=== PATIENT | female | born 1990 | race Caucasian/White ===

== ENCOUNTER 2017-07-27 23:11 | Emergency (ER) | payer OTHER ==
[~2017-07-27] VITALS: Ht 157.5 cm; Wt 48.4 kg
[~2017-07-27 23:11] MED LIST: DEXT30TA7 PO; SPR28 PO; TYLOTC500 PO
[2017-07-27 23:18] VITALS: TEMP 36.9; Ht 157.5 cm; Wt 48.4 kg
[2017-07-27] MEDS ORDERED: ALBUT/IPRATROP 3MG/0.5MG NEB 3 ML VIAL INH STA (23:27)
[2017-07-27 23:42] VITALS: O2SAT 99
[2017-07-27] MEDS ORDERED: POLY335019 PO (23:54)
[2017-07-28] MEDS ORDERED: ALBUTEROL HFA 8 GM INHALER INH STA (00:27)
[2017-07-28 01:08] VITALS: BP 130/82; PULSE 100; O2SAT 100
--- NOTE | 2017-07-28 03:12 | EMERGENCY ROOM VISIT NOTE ---
History First contact with patient: 23:22 Chief Complaint: EAR PAIN Stated Complaint: RT EAR PRESSURE AND THROAT PAIN, RUNNY NOSE History of Present Illness The patient is a 27 year old female who presents to the Emergency Room with complaints of cough, congestion, runny nose and sore throat for the past few days. No temp was taken. No flu shot. No recent travel. Patient denies chest pain, dyspnea, headache, neck stiffness, abdominal pain, vomiting, diarrhea. She is tolerate by mouth fluids and food. Review of Systems See HPI for pertinent positives & negatives. A total of 10 systems reviewed and were otherwise negative. Past Medical/Surgical History Medical Problems: (1) Kidney stones Family History Cancer Hypertension Social History Smoking Status: Never Smoker Smokeless Tobacco Use: No Drug Use: none Marital Status: Housing Status: lives with family Occupation Status: employed Current/Historical Medications Scheduled Ethinyl Estrad/Norgestimate (Sprintec 28), 1 TAB PO DAILY Polyethylene Glycol 3350 (Miralax), 17 GM PO DAILY Physical Exam Vital Signs Date Time Temp Pulse Resp B/P (MAP) Pulse Ox O2 Delivery O2 Flow Rate FiO2 07/28/17 01:08 100 18 130/82 100 07/27/17 23:42 99 Room Air 07/27/17 23:18 36.9 110 19 134/78 100 Room Air Physical Exam VITALS: Vitals are noted on the nurse's note and reviewed by myself. Vital signs mildly tachycardic GENERAL: Pleasant female, in no acute distress, nondiaphoretic, well-developed well-nourished. SKIN: The skin was without rashes, erythema, edema, or bruising. There is no tenting of the skin. Capillary reflex less than 2 seconds. HEAD: Normocephalic atraumatic. EARS: External auditory canals clear, tympanic membranes pearly paulson without erythema or effusion bilaterally. EYES: Pupils equal round and reactive to light and accommodation. Conjunctivae without injection, sclerae without icterus. Extraocular movements intact. NOSE: Patent, turbinates without inflammation or discharge. No sinus tenderness. MOUTH: Mucous membranes moist. Pharynx without erythema or exudate. Uvula midline. Airway patent. Tongue does not deviate. NECK: Supple without nuchal rigidity. No lymphadenopathy. No thyromegaly. Cervical spine is nontender. No JVD.No meningeal signs HEART: Tachycardic rate and rhythm without murmurs gallops or rubs. LUNGS: Mild diffuse end expiratory wheezes, without rales or rhonchi. No dullness to percussion. No retractions or accessory muscle use. ABDOMEN: Positive bowel sounds x 4. Normal tympanic percussion. Soft, nontender, without masses or organomegaly. Spann sign negative. No guarding or rebound tenderness. MUSCULOSKELETAL: No muscle atrophy, erythema, or edema noted. NEURO: Patient was alert and oriented to person place and time. Normal sensation to light and sharp touch. No focal neurological deficits. Medical Decision & Procedures Medications Administered Medications (Trade) Dose Ordered Sig/Guillermo Route Start Time Stop Time Status Last Admin Dose Admin Albuterol/ Ipratropium (Duoneb) 3 ml NOW STAT INH 07/27/17 23:27 07/27/17 23:28 DC 07/27/17 23:42 3 ML Albuterol (Ventolin Hfa Inhaler) 2 puffs ONE STAT INH 07/28/17 00:27 07/28/17 00:28 DC 07/28/17 01:01 2 PUFFS ED Course Prior records/ancillary studies reviewed. Triage Nursing notes reviewed. Additional history obtained from family The patient's history was concerning for a cough, earache and sore throat. Differential diagnosis: Etiologies such as bronchitis, viral syndrome, tonsillitis, streptococcal pharyngitis, mononucleosis, peritonsillar abscess, retropharyngeal abscess, otitis, pneumonia, influenza, as well as others were entertained. ER treatment provided: Nebulizer On reassessment the patient felt better. Diagnostics interpreted by me: The labs revealed negative strep test Imaging studies: Chest x-ray with no acute consolidation, pneumothorax or free air per my interpretation This appears to be consistent with bronchitis. Patient's vital signs are stable. She was not retracting. She is well-appearing. She is advised to take medications as directed and to follow-up with family care in a few days or here in the ER sooner for high fevers, difficulty breathing, neck stiffness, worsening signs or symptoms or as needed. By the evaluation outlined above emergent etiologies such as peritonsillar abscess, retropharyngeal abscess, otitis, pneumonia, meningitis, urinary tract infection, sepsis, bacteremia, as well as others were deemed relatively unlikely. The pt informed about the findings as listed above. All questions were answered and pleased with the treatment. Return instructions were outlined and the patient was discharged in stable condition. Referral: The patient was referred back to their primary care physician for follow-up in 2 to 3 days for a recheck of the current condition. 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 Use 1000mg every six hours as needed. Avoid using more than 3000mg in a 24 hour period. (AND/OR) Ibuprofen(Motrin, Advil) may be used for fever or pain. Use 600mg every six hours as needed. Take with food. Avoid using more than 2400mg in a 24 hour period. Do not use 2400mg per day for more than three consecutive days without physician direction. Prolonged inappropriate use can lead to stomach upset or ulcers. Afrin nasal spray: 2-3 sprays to each nostril twice daily as needed for congestion. Do not use for more than 3-4 days because it can lead to worsening rebound congestion. Pseudoephedrine(Sudaphed): 30-60mg every 6 hours as needed for nasal congestion. Do not take this with other stimulant products or supplements. Albuterol Inhaler: Take 2 puffs four times daily for seven days, then as needed. Rest and drink plenty of fluids. Controlling your fever with Tylenol and Ibuprofen as above will make you feel better. Wash your hands after nose blowing, sneezing, or coughing. Most germs are spread through contact, therefore improper hygiene may result in your close contacts and loved ones becoming ill just like you. Continue current medications. Return to the ER for severe headache, neck stiffness, chest pain, difficulty breathing, fevers, vomiting, worsening of your condition, or as needed. Follow up with your primary physician this week for a recheck of your current condition. Problem Qualifiers Primary Impression: Acute bronchitis Bronchitis organism: unspecified organism Qualified Codes: J20.9 - Acute bronchitis, unspecified
--- NOTE | 2017-07-28 06:31 | DIAGNOSTIC IMAGING REPORT ---
CHEST 2 VIEWS ROUTINE CLINICAL HISTORY: cough/fever dyspnea COMPARISON STUDY: 09/30/2014 FINDINGS: The bones soft tissues and hemidiaphragms are normal. The cardiomediastinal silhouette is normal. The lungs are clear. The pulmonary vasculature is normal. IMPRESSION: Negative chest. The above report was generated using voice recognition software. It may contain grammatical, syntax or spelling errors. Electronically signed by: Tuan Robbins M.D. 07/28/2017 6:30 AM Dictated Date/Time: 07/28/2017 6:29 AM
== END 2017-07-28 01:10 | disposition home or self-care (01) ==
LOC: C.EDB 23:13
DX: J20.9 Acute bronchitis, unspecified (principal); Z79.3 Long term (current) use of hormonal contraceptives; Z82.49 Family history of ischemic heart disease and other diseases of the circulatory system

== ENCOUNTER → 2018-01-06 | Outpatient (CLI) | payer OTHER ==
[~2018-01-06] MED LIST changes: -DEXT30TA7 PO; +POLY335019 PO; -TYLOTC500 PO
== END | disposition home or self-care (01) ==
LOC: C.PAPS 12:03
PROVIDERS: ATTEND Physician Assistant
DX: Z12.4 Encounter for screening for malignant neoplasm of cervix (principal)

== ENCOUNTER 2023-11-08 06:09 | Observation (INO) ==
--- NOTE | 2023-11-08 07:18 | History & Physical Report ---
Date of Service November 08, 2023 Assessment & Plan (1) Vaginal bleeding in patient after first trimester with placenta previa: Plan Complete previa with bleeding event. Has been on ASA81 due to COVID in early . FHT currently Cat 1. Significant blood loss suggesting partial abruption; no obvious collection of blood behind placenta on limited bedside US, which showed vtx fetus with adequate subjective fluid. Lab workup ordered, including CBC/CMP/UDS. Rh positive. No visible cervical dilation; digital exam deferred, but toco also quiet - no PTL. Discussed with mom and FOB that best plan for baby wander [place] is to stay if possible at this time, but additional bleeding or placental separation may dictate the need to deliver urgently. Nothing to do with respect to helping the placenta stay attached, so we can give BMTZ and then we observe. Will reach out to their [facility] service of choice which is [employer] product, and if able to transfer while stable, will do so in order to access NICU care. History of Present Illness Primary Care Provider: Marly Sexton, DO 33yo with GDM, complete posterior previa, presents with sudden onset of heavy vaginal bleeding. Patient was sleeping and she awoke due to a sensation of fluid per vagina, then found she had bright red VB that was through her shorts onto the sheets. No recent sex / nothing in vagina / no inciting event she is aware of. Since awakening she has put on a depends garment and it has approx 100cc of blood on the pad area. No contractions, no broken water, has felt FM since awakening. Allergies Allergy/AdvReac Type Severity Reaction Status Date / Time Cephalosporins Allergy Hives Verified 11/08/23 06:29 Home Medications Medication Instructions Recorded Confirmed Type albuterol sulfate 90 mcg/actuation 2 puff inhalation Q6H PRN 07/31/21 11/08/23 Rx aerosol inhaler shortness of breath or wheezing #8.5 grams cetirizine 10 mg tablet (Zyrtec) 10 mg PO DAILY 02/19/22 11/08/23 History aspirin 81 mg tablet,delayed 81 mg PO DAILY #30 tabs 07/06/23 11/08/23 Rx release acetone (urine) test (Ketone Urine #50 ea 08/10/23 11/02/23 Rx Test strips) blood sugar diagnostic (OneTouch #150 ea 08/10/23 11/02/23 Rx Verio test strips) blood-glucose meter (OneTouch #1 ea 08/10/23 11/02/23 Rx Verio Reflect Meter) lancets 33 gauge (OneTouch Carmen #150 ea 08/10/23 11/02/23 Rx Plus Lancet) docusate sodium 100 mg capsule 100 mg PO BID 11/08/23 11/08/23 History (Colace) [id number] 1 mg 1 tab PO DAILY 11/08/23 11/08/23 History tablet Patient History Medical History History of chicken pox Allergic rhinitis Anxiety Irritable bowel syndrome with constipation Nephrolithiasis Vertigo Vitamin D deficiency Surgical History History of tooth extraction Hx of LASIK Family History Brother Crohn's disease Father Hypertension Grandfather (Paternal) , January 2020 Hypertension Kidney stone Myocardial infarction, Onset Age: 72 Heart valve replaced Kidney disease Grandmother (Paternal) Hypertension Skin cancer Denies family history of Ovarian cancer Breast cancer Colorectal cancer Social History Smoking Status: Never smoker Second Hand Exposure: No; Do You Dip or Chew Tobacco: No; Hx Alcohol Use: Yes Alcohol Intake Frequency: Monthly or Less Alcohol Intake Frequency Comment: social Hx Substance Use: No Preferred Language: Sammarinese Communication Ability: Effective Visual Impairment: No Limitations Hearing Ability: Normal 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: No Beliefs That Will Affect Care: None marital status: marital status details: Jone Machado (34) [phone] Current Living Situation: Spouse Current Living Situation Comment: lives with spouse, dog current occupational status: employed current occupation: [employer] How many Children do You have: 0 Feels Safe at Home: Yes Safety Concerns: Feels Safe At This Time Childhood Exposure to Second-Hand Smoke: Yes Diet: regular caffeine: Yes during the past year weight has: remained stable Dental Care, Regularly: Yes Physical Activity Frequency: Does not Exercise Seatbelt Use: always Sunscreen Use: Yes Physical Exam Constitutional: WD/WN, vitals as above Eyes: PERRL, conjunctivae normal, anicteric sclerae ENMT: external ear and nose normal, oropharynx normal Neck: supple Respiratory: normal respiratory effort and able to speak in complete sentences; no respiratory distress Cardiovascular: Rate/Rhythm: regular rate and regular rhythm Gastrointestinal (Abdomen): Gravid / AGA, nontender Musculoskeletal: no cyanosis or clubbing, extremities motor strength 5/5 Skin: no rashes, warm and dry Psychiatric: A+Ox3, euthymic affect Genitourinary: Speculum/Bimanual Exam: + vaginal bleeding (SSE: quarter-sized dark clot removed from vault, no active bleeding); no vaginal lesions and uterus nontender OB Exam Abdomen: + vertex ( hands above head at the cervix); no regular contractions (toco quiet) Manual OB Exam: + cervical dilation (vis ually closed), + cervical effacement (thick) and + amniotic fluid (No leaking evident) OB Exam Monitor Tracing: + external FHT monitor used, + external uterine monitor used and + category I Lymphatic: no cervical or axillary lymphadenopathy Results & Data Vital Signs (Past 12 Hours) Vital Signs Temp Pulse Resp BP O2 Del Method 11/08/23 06:30 98.4 F 20 Room Air 11/08/23 06:25 98.4 F 104 H 20 119/71 Coding Level of Care Code 66737 INT INP/OBS CARE 2/55MIN Diagnoses Vaginal bleeding in patient after first trimester with placenta previa O44.11
[2023-11-08] MEDS: BETAMETH SOD PHOS/ACETATE IA 6 MG/ML IM STA (07:20)
[2023-11-08] MEDS: BETAMETH SOD PHOS/ACETATE IA 6 MG/ML ONE (07:20)
[2023-11-08] MEDS: LACTATED RINGER'S 1,000 ML IV PRN (07:20)
[2023-11-08 07:44] LABS: Amphetamines+Metham, Urine Neg (Neg); Barbiturates, Urine Neg (Neg); Benzodiazepine, Urine Neg (Neg); Cocaine, Urine Neg (Neg); MDMA (Ecstacy), Urine Neg (Neg); Marijuana, Urine Neg (Neg); Methadone, Urine Neg (Neg); Opiate, Urine Neg (Neg); Phencyclidine, Urine Neg (Neg)
[2023-11-08 07:45] LABS: Hematocrit (blood only) 33.9 % (37.0-47.0); Hemoglobin 11.2 g/dl (12.0-16.0); Mean Corpuscular Hemoglobin 31.7 pg (25.0-34.0); Mean Platelet Volume 9.4 fL (9.4-12.4); Platelet Count 222 K/uL (130-400); RDW Coefficient of Variation 13.5 % (11.5-14.5); RDW Standard Deviation 47.3 fL (36.4-46.3); Red Blood Count 3.53 M/uL (4.20-5.40); White Blood Count 8.94 K/ul (4.8-10.8)
[2023-11-08 08:00] LABS: Alanine Aminotransferase 26 U/L (7-52); Albumin Globulin Ratio 1.3 (0.9-2); Albumin Level 3.3 gm/dl (3.4-5.0); Alkaline Phosphatase 80 U/L (34-104); Anion Gap 7 (3-11); Aspartate Aminotransferase 21 U/L (13-39); BUN Creatinine Ratio 34.4 (10-20); Bilirubin,Total 0.3 mg/dl (0.2-1.0); Blood Urea Nitrogen 11 mg/dl (6-23); Calcium 8.8 mg/dl (8.6-10.3); Carbon Dioxide 24 mmol/L (21-32); Chloride 106 mmol/L (98-107); Creatinine Clr Calc Pharmacy 211.9 ml/min; Est GFR (African American) > 150.0 ml/min; Est GFR (Non-African American) 146.3 ml/min; Globulin 2.6 gm/dl (2.5-4.0); Glucose 108 mg/dl (70-99(Fasting)); Potassium 3.3 mmol/L (3.5-5.1); Sodium 137 mmol/L (136-145); Total Protein 5.9 gm/dl (6.0-8.3)
[2023-11-08] MEDS: LIDOCAINE 2% JELLY 5 ML TUBE EXT ONE (08:59)
== END 2023-11-08 08:22 | disposition short-term general hospital (02) ==
LOC: 4S1 06:09 → OPB 06:09 → 4S1 06:16